=== PATIENT | male | born 1995 | race Two or more races ===

== ENCOUNTER 2020-05-18 13:16 | Emergency (ER) | payer OTHER ==
[2020-05-18 13:24] VITALS: BP 124/77; PULSE 67; TEMP 97; BMI 23.3
[2020-05-18] MEDS ORDERED: ACETAMINOPHEN 500 MG TABLET (FP) PO ONE (13:44)
[2020-05-18] MEDS ORDERED: ACETAMINOPHEN 500 MG TABLET (FP) ONE (13:58)
[2020-05-18] MEDS ORDERED: DIPHTH,PERTUSS(ACELL),TET 0.5 ML DISP.SYRIN IM ONE (15:00)
== END 2020-05-18 15:46 | disposition home or self-care (01) ==
LOC: JERFT 13:16
DX: M54.16 Radiculopathy, lumbar region (principal)
CPT/HCPCS: 72100-TC-FY; 99283-25